=== PATIENT | female | born 1975 | race Caucasian/White ===

== ENCOUNTER 2022-03-02 21:53 | Emergency (ER) | payer OTHER ==
[2022-03-02 22:10] VITALS: O2SAT 98
--- NOTE | 2022-03-02 23:07 | ERPHSYRPT ---
- History of Present Illness Time Seen by Provider: 03/02/22 22:10 Source: patient Exam Limitations: no limitations Patient Subjective Stated Complaint: pt states " I slipped in the mud around 5pm today and it didn't really bother me until I started walking o it in [facility]." Triage Nursing Assessment: Pt ambulatory to bed by self, pt alert and oriented x3, pt c/o R foot pain d/t slipping in the mud earlier this evening, bilateral pedal pulses +2, pt has some swelling in R ankle but patient states " My ankles are always swollen, Physician History: Patient is a 46-year-old female to emergency department for evaluation of pain to her right foot. Patient states that approximately 5 PM she was walking and slipped in the mud. Patient injured the lateral border of her foot. Patient states that she did not immediately feel pain. Patient went to [facility] and as she was walking throughout the store began to feel some discomfort. Pain now described as an ache that is localized. No radiation. Pain worse with weig htbearing. Pain improves with rest. No associated ankle knee hip pain. No other injuries reported. No BHT or LOC. No neck pain. Cervical spine cleared clinically. Patient otherwise feels well. She voices no other complaints or concerns at this time. Patient declined pain medication Portions of this note were created with voice recognition technology. There may be grammatical, spelling, punctuation or sound alike errors Method of Injury: fell Occurred: this evening Quality: constant Severity of Pain-Max: moderate Severity of Pain-Current: mild Lower Extremities Pain: foot: right Modifying Factors: Improves With: other (Weightbearing reproduces pain.) Associated Symptoms: none Allergies/Adverse Reactions: azithromycin [From Zithromax Z-Gilson] Allergy (Mild, Verified 03/02/22 22:02) Penicillins Allergy (Mild, Verified 03/02/22 22:02) Rash Home Medications: No Reportable Medications [No Reported Medications] 03/02/22 [History] Hx Tetanus, Diphtheria Vaccination/Date Given: No Hx Influenza Vaccination/Date Given: No Hx Pneumococcal Vaccination/Date Given: No Immunizations Up to Date: Yes Travel Risk - International Travel Have you traveled outside of the country in past 3 weeks: No - Coronavirus Screening Are you exhibiting any of the following symptoms?: No Close contact with a COVID-19 positive Pt in past 14-21 Days: No - Vaccine Status Have you recieved a Covid-19 vaccination: Yes Veget[employer]: Moderna - Vaccination Dates Date of 2cond Vaccination (if applicable): 2020 - Review of Systems Constitutional: No Symptoms, No Fever, No Chills Eyes: No Symptoms Ears, Nose, & Throat: No Symptoms Respiratory: No Symptoms, No Cough, No Dyspnea Cardiac: No Symptoms, No Chest Pain, No Edema, No Syncope Abdominal/Gastrointestinal: No Symptoms, No Abdominal Pain, No Nausea, No Vomiting, No Diarrhea Genitourinary Symptoms: No Symptoms, No Dysuria Musculoskeletal: No Symptoms, No Back Pain, No Neck Pain Skin: No Symptoms, No Rash Neurological: No Symptoms, No Dizziness, No Focal Weakness, No Sensory Changes Psychological: No Symptoms Endocrine: No Symptoms Hematologic/Lymphatic: No Symptoms Immunological/Allergic: No Symptoms All Other Systems: Reviewed and Negative - Past Medical History Pertinent Past Medical History: Yes Neurological History: No Pertinent History Cardiac History: High Cholesterol Respiratory History: No Pertinent History Endocrine Medical History: No Pertinent History Musculoskeletal History: No Pertinent History Other Medical History: EMG ON THE R UE YESTERDAY, HAS NUMBNESS IN R 4TH AND 5TH FINGERS. - Past Surgical History Past Surgical History: Yes Neuro Surgical History: No Pertinent History Cardiac: No Pertinent History Respiratory: No Pertinent History Gastrointestinal: No Pertinent History Genitourinary: No Pertinent History Musculoskeletal: Orthopedic Surgery Female Surgical History: Tubal Ligation Other Surgical History: L foot surgery - Social History Smoking Status: Current every day smoker Exposure to second hand smoke: Yes Drug Use: none Patient Lives Alone: No - Female History Hx Last Menstrual Period: 03/02/2022 Hx Now: No - Nursing Vital Signs Nursing Vital Signs: Initial Vital Signs Temperature 97.1 F 03/02/22 22:03 Pulse Rate 73 03/02/22 22:03 Respiratory Rate 16 03/02/22 22:03 Blood Pressure 186/83 03/02/22 22:03 O2 Sat by Pulse Oximetry 98 03/02/22 22:03 Pain Scale Pain Intensity 2 - Physical Exam General Appearance: no apparent distress, alert Eyes, Ears, Nose, Throat Exam: normal ENT inspection, TMs normal, pharynx normal, moist mucous membranes Neck Exam: normal inspection, non-tender, supple, full range of motion Cardiovascular/Respiratory Exam: chest non-tender, normal breath sounds, regular rate/rhythm, heart sounds normal, no respiratory distress Gastrointestinal/Abdominal Exam: non-tender, soft, guarding Back Exam: normal inspection, normal range of motion, No CVA tenderness, No vertebral tenderness Hips Exam: bilateral: non-tender, normal inspection, normal range of motion, no evidence of injury Legs Exam: bilateral leg: non-tender, normal inspection, normal range of motion, no evidence of injury Knees Exam: bilateral knee: non-tender, normal inspection, normal range of motion, no evidence of injury Ankle Exam: bilateral ankle: non-tender, normal inspection, normal range of motion, no evidence of injury Foot Exam: right foot: pain, swelling (Tenderness to palpation lateral border of her right foot. Right lower extremity neurovascular intact distally. Compartments are soft. Cap refill less than 2 seconds. PT DP pulse palpable.), left foot: non-tender, normal inspection, normal range of motion, no evidence of injury Neuro/Tendon Exam: normal sensation, normal motor functions Mental Status Exam: alert, oriented x 3, cooperative Skin Exam: normal color, warm, dry SpO2 Interpretation: normal SpO2: 98 O2 Delivery: Room Air - Course Nursing assessment & vital signs reviewed: Yes - Radiology Exams Foot X-ray Interpretation: Interpreted by me (No fracture or dislocations. Soft tissue swelling lateral border of foot) Ordered Tests: Active Orders 24 hr Category Date Time Status FOOT (MINIMUM 3 VIEWS) Stat Exams 03/02/22 22:43 Taken - Progress Progress: improved Progress Note: Patient reassessed. She is resting comfortably. Patient declined pain medication. X-ray negative for fracture dislocation. Soft tissue swelling observed at the lateral border. Patient given bilateral axillary crutches. No indication for further work-up at this time. Will discharge home. Patient agrees to follow-up with primary care doctor within 48 hours for evaluation. She voices no other complaints concerns at this time. Portions of this note were created with voice recognition technology. There may be grammatical, spelling, punctuation or sound alike errors 03/02/22 23:14 Counseled pt/family regarding: diagnosis, need for follow-up, rad results - Departure Departure Disposition: Home Clinical Impression: Foot contusion Condition: Stable Critical Care Time: No Referrals: URI MARTINEZ MD [Primary Care Provider] - Follow up/PCP as directed Instructions: Contusion (DC) Additional Instructions: Discharge/Care Plan SASCHA SALAS was seen on 03/02/22 in the Emergency Room. The patient was counseled regarding Diagnosis,Lab results, Imaging studies, need for follow up and when to return to the Emergency Room. Prescriptions given: Discharge Note I have spoken with the patient and/or caregivers. I have explained the patient's condition, diagnosis and treatment plan based on the information available to me at this time. I have answered the patient's and/or caregiver's questions and addressed any concerns. The patient and/or caregivers have as good understanding of the patient's diagnosis, condition and treatment plan as can be expected at this point. The vital signs have been stable. The patient's condition is stable and appropriate for discharge from the emergency department. The patient will pursue further outpatient evaluation with the primary care physician or other designated or consulting physician as outlined in the discharge instructions. The patient and/or caregivers are agreeable to this plan of care and follow-up instructions have been explained in detail. The patient and/or caregivers have received these instruction. The patient/and or caregivers are aware that any significant change in condition or worsening of symptoms should prompt an immediate return to this or the closest emergency department or call 911.
[2022-03-02 23:14] VITALS: BP 120/71; PULSE 70
--- NOTE | 2022-03-03 08:44 | XRAY ---
Indication: Lateral soft tissue swelling. Comparison: None 3 nonweightbearing views right foot demonstrates mild lateral foot soft tissue swelling and tiny heel spurs. No other bony, articular, or soft tissue abnormalities.
== END 2022-03-02 23:27 | disposition home or self-care (01) ==
LOC: ED 21:53
DX: S90.31XA Contusion of right foot, initial encounter (principal); W01.0XXA Fall on same level from slipping, tripping and stumbling without subsequent striking against object, initial encounter; Y93.01 Activity, walking, marching and hiking; M79.671 Pain in right foot; E78.5 Hyperlipidemia, unspecified; Z72.0 Tobacco use
CPT/HCPCS: 73630; 99282